=== PATIENT | female | born 1965 | race Caucasian/White ===

== ENCOUNTER 2020-06-14 12:53 | Outpatient (CLI) | payer OTHER, SELFPAY | END 2020-06-14 12:54 | disposition home or self-care (01) | LOC: ANHAUDIO 12:55 | PROVIDERS: PCP Internal Medicine; Visit Provider Otolaryngology | DX: H81.09 Meniere's disease, unspecified ear (principal) | CPT/HCPCS: 92557; 92567 ==

== ENCOUNTER → 2020-08-19 14:49 | Outpatient (CLI) | payer OTHER, SELFPAY ==
--- NOTE | ~2020-08-19 | MM_ITS ---
EXAMINATION: MM screening vanessa BI w jerome HISTORY: Screening TECHNIQUE: Craniocaudal and mediolateral oblique 3-D tomosynthesis images were obtained and synthetic 2-D images were generated. CAD analysis was submitted and interpreted. COMPARISON: Comparison to multiple prior studies sequentially, with oldest reviewed study dated 01/15. BREAST PARENCHYMAL COMPOSITION: There are scattered areas of fibroglandular density. FINDINGS: There is no evidence of suspicious mass, calcification, or architectural distortion to sugg est malignancy in either breast. There has been no suspicious interval change. IMPRESSION: 1. No mammographic evidence of malignancy. 2. Recommend routine screening mammography in one year. BI-RADS Category 1: Negative Reviewed, dictated and finalized at location A. DIE MOLDER
== END ==
PROVIDERS: Visit Provider Obstetrics & Gynecology Gynecology
DX: Z12.31 Encounter for screening mammogram for malignant neoplasm of breast (principal)
CPT/HCPCS: 77063; 77067

== ENCOUNTER 2021-10-06 15:30 | Outpatient (CLI) | payer OTHER, SELFPAY ==
--- NOTE | 2021-10-06 15:30 | ECG_ITS ---
Measurements Intervals [place] Rate: 68 P: 60 VA: 187 QRS: -11 QRSD: 76 T: 31 QT: 367 QTc: 391 Interpretive Statements SINUS RHYTHM NO PREVIOUS ECG AVAILABLE FOR COMPARISON Electronically Signed On 10-07-2021 6:44:58 CDT by Aleja Palmer M.D.
[2021-10-06 15:50] LABS: Anion Gap 5 mmol/L (8-16); Blood Urea Nitrogen 17 mg/dL (7-17); Calcium 9.2 mg/dL (8.4-10.2); Carbon Dioxide 32 mmol/L (22-30); Chloride 101 mmol/L (98-107); Estimated Glomerular Filt Rate 58; Glucose 95 mg/dL (65-110); Potassium 3.6 mmol/L (3.4-5.0); Sodium 138 mmol/L (137-145)
== END 2021-10-06 15:31 | disposition home or self-care (01) ==
LOC: ANHSURGERY 10-10 05:46
PROVIDERS: Anesthesiology; PCP Internal Medicine; Visit Provider Surgery Plastic and Reconstructive Surgery
DX: Z01.818 Encounter for other preprocedural examination (principal); E78.5 Hyperlipidemia, unspecified; Z51.81 Encounter for therapeutic drug level monitoring; Z79.899 Other long term (current) drug therapy
CPT/HCPCS: 36415; 80048; 93005

== ENCOUNTER 2021-10-10 00:10 | Day surgery (SDC) | payer OTHER, SELFPAY ==
[2021-10-02 16:02] VITALS: BMI 38.7
--- NOTE | 2021-10-02 16:25 | SUR.PREOP ---
Report to the Outpatient Waiting Room, entrance under the green pavilion located off [facility], at time _0600__ on date _. OR Time: _0730____. - You and your visitor will be asked a series of questions to screen for COVID 19 for your protection. - A mask is required within the hospital. Preoperative COVID Testing Requirements: No COVID Test needed if: (proof is required; if not received patient will have Rapid Test prior to entry) - Patient has received COVID Vaccine at least 14 days prior to procedure date or - Patient has positive COVID test result within last 90 days of surgery date. COVID Test needed if above criteria is not met If not COVID vaccinated a COVID test must be conducted within 72 hours of surgery and patient is asked to isolate self from time of testing until procedure. You will go to the [facility] for your COVID testing. The [facility] site is located at the corner of [address] [facility]. You will only be called if COVID results are positive and your surgeon may reschedule your elective surgery date. Patients may have clear liquids (water, carbonated beverages, clear teas, apple juice) until 3 hours prior to surgery with a maximum of 20 ounces. - No food from midnight until time of surgery - Infants may have breast milk until 4 hours before surgery, formula 6 hours prior to surgery. - Children will be allowed to drink immediately following surgery. If applicable, please bring a bottle or sippy cup to assist with drinking. Juice, water, soda, and popsicles are readily available. For infants on formula, please bring formula the day of surgery. Pacifiers are allowed. Take the following medications with a SIP of water the morning of surgery: _HOLD MORNING MEDS Medications to discontinue per physician ___CELEBREX ON 10/03/21 Date to take last dose_VITAMINS 3 DAYS PRIOR Please no make-up, nail ghanaian, hairspray, perfume, deodorant, or body powder the day of surgery. No jewelry (including any body piercings) or valuables the day of surgery, leave them at home. Please take a shower or bath the night before, or the morning of, surgery with an antibacterial soap. Wear comfortable, loose fitting clothing. Children are encouraged to wear pajamas. - Jewelry must be removed prior to entering the operating room. Rings and piercings that are not removed may be cut off. - The hospital will not accept responsibility for valuables. - Please leave all valuables, including medications, at home the day of surgery. If you are going home after surgery, a licensed catering driver must drive you home. - NO public transportation without another adult. - We recommend that an adult stay with you for 24 hours following discharge. - We also recommend that you do not drive, make important decision, drink alcoholic beverages, or take any drugs that were not prescribed by your health care provider for at least 24 hours after your discharge time. For Pediatric surgeries, we recommend two adults accompany the child home (only one inside the building at this time). One visitor will be allowed to accompany the patient into the hospital. Patients visitor will be instructed to remain with patient at all times or leave the building. We will allow the visitor to come back to the postoperative area when patient is ready. Follow any additional instructions given to you from your surgeon. Telephone instructions given to __PATIENT and asked if any additional questions and then verbalized understanding. Patient advised to call surgeon office or pre surgery nurse liaison [phone] if any additional questions.
[2021-10-10] VITALS (9 sets, daily range): BP systolic 117–148; BP diastolic 63–87; PULSE 61–84; RESP 12–20; TEMP 36.7; O2SAT 94–100
[2021-10-10 06:41] LABS: Urine Cotinine NEGATIVE
--- NOTE | 2021-10-10 06:42 | W.PM.PROC2 ---
Procedure Note - Detailed Date of Procedure 10/10/21 Pre-op Diagnosis macromastia Post-op Diagnosis Same Procedure Performed Bilateral reduction mammaplasty with free nipple graft Surgeon Bob Deleon MD Anesthesia General Findings Inverted T Free Nipple graft Tissue removed: Right - 2319 grams Left - 2323 grams Description of Procedure She is here today for bilateral breast reduction with free nipple graft. Previously and again today the risks, benefits, alternatives were discussed in extensive detail. I wanted her to be very realistic about the risks involved as well as expectations. We discussed aftercare and what to monitor for. She understands we can never guarantee final breast size and there will always be asymmetry. She understands she will have residual lateral fullness. She would like to be smaller than larger. I was very upfront and honest about the risks of sensation change and even nipple loss (). She understands that breast pathology is an additional cost and at her expense. Made sure answered all of her questions to her satisfaction today and consent was obtained. She was marked in the preoperative holding area with their verification. The patient was taken to the operating room placed supine on the operating table. Anesthesia was provided by anesthesiology. She was prepped and draped in a standard sterile fashion. A surgical time-out was taken. Stab incisions were made and I tumessed with a tumescent solution. I marked out the nipple-areolar complex at 42 mm. NAC was removed deep to dermis and kept in moist gauze. I then removed the inferior portion of the breast as well as the central keel to get shape based on preoperative planning. At this point copiously irrigated with saline solution and verified a strict hemostasis. I reapproximated the pillars using a 2-0 PDS. I tailor tacked the breast into place with gulshan. She was placed in a sitting position. I verified the nipple-areolar complex position based on preoperative markings, intraoperative measurements, and observation which were in full agreement. This nipple-areolar complex was marked at 42 mm in size. I then placed supine and de-epithelialized this. Nipple-areolar complex was defatted and inset with 5-0 chromic. I closed IMF deep with 1 strattafix. I closed the vertical incision with 3-0 Monocryl in the IMF with 3-0 stratafix. Then everything was closed using a running subcuticular 4-0 Monocryl followed by Steri-Strips. A bolster was placed over the NAC with xeroform, wet cotton, and 3-[address] to suture in place. A dressing was placed followed by surgical bra. Patient was awoke and taken to PACU without difficulty. All instrument sponge counts were correct at the end of the case. Estimated Blood Loss 100 Drains No Packing No Pathology Yes (bilateral breast tissue) Complications No immediate complications Condition Stable Disposition PACU
[2021-10-10] MEDS: LACTATED RINGERS 1,000 ML 30 ML IV CONT ×2 (06:45→10:06)
--- NOTE | 2021-10-10 06:48 | WPDANESEPPF ---
Anes - Initial Pre Proc Eval Procedure: Operation Date: 10/10/21 07:30 Proposed Procedures p Bilateral Breast Reduction - Bob Deleon MD Date/Time: 10/10/21 06:48 Surgeon: Bob Deleon MD Pre Op Diagnosis: micromastia Patient Data Age: 55 Gender: F Height: 1.7 m Weight: 112.04 kg Allergies Allergy/AdvReac Type Severity Reaction Status Date / Time doxycycline Allergy Severe y Verified 09/26/21 09:12 Home Medications Medication Instructions Recorded Confirmed Type cholecalciferol (vitamin D3) 125 5,000 unit PO DAILY 08/17/19 10/02/21 History mcg (5,000 unit) capsule celecoxib 200 mg capsule 200 mg PO DAILY cap 03/24/21 10/02/21 History trazodone 50 mg tablet 50 mg PO DAILY tablet 03/24/21 10/02/21 History triamterene 37.5 1 cap PO DAILY #90 cap 06/06/21 10/02/21 Rx mg-hydrochlorothiazide 25 mg capsule docusate sodium 100 mg capsule 100 mg PO DAILY #14 cap 09/26/21 10/02/21 Rx hydrocodone 5 mg-acetaminophen 325 1 tablet PO Q6H PRN #30 tablet 09/26/21 10/02/21 Rx mg tablet atorvastatin 10 mg PO HS 10/02/21 10/02/21 History Laboratory Tests 10/10/21 06:23 Cotinine Negative Patient hx anesthesia problems: none Family hx anesthesia problems: none Results Review: All pre-operative results and documents have been reviewed as part of the pre-operative evaluation. [facility] Surgical History Surgical History H/O colonoscopy History of D&C Hx of ureter repair Family History Family History Mother Depression Father Family history of elevated blood lipids Grandparent Cerebrovascular accident Carcinoma of colon Family history of heart disease in male family member before age 55 Other Hypertension Social History Social History Smoking status: Never smoker Second hand tobacco smoke exposure: No Alcohol intake: current Alcohol use details: PT STATES THAT SHE DRINKS ALCOHOL SOCIALLY Substance use: never Substance use type: does not use Living arrangements: with family Anes - Evkitty Final PreProcedure Day of Procedure 10/10/21 06:48 Patient weight: obese Heart: regular rate and rhythm Lungs: clear to auscultation Airway: Mallampati scale class II Neurological: alert and oriented Last oral intake: >/= 8 hours ASA classification: II Emergent: no Anesthetic plan: proceed Anesthesia type and monitoring: general ETT and standard monitoring Results Review: All pre-operative results and documents have been reviewed as part of the pre-operative evaluation. Informed Consent: The patient's anesthetic plan and its attendant risks and benefits were discussed with the patient/family/POA. Questions were solicited and answers provided to the satisfaction of the patient/family/POA.
[2021-10-10] MEDS: TRANEXAMIC ACID 1,000MG/ISO100 1,000 MG/100 ML BAG 200 MG IVPB (06:56)
--- NOTE | 2021-10-10 07:05 | WPDHPUPDATE1 ---
History and Physical Update Update Date/Time: 10/10/21 07:05 History and Physical has been reviewed, including an updated exam of the patient. There are NO changes in the patient's condition. Risks, benefits, and alternatives have been discussed and questions answered. Patient agrees to proceed with procedure.
[2021-10-10] MEDS: ceFAZolin 2 GM/D5W 50 ML 2 GM/50 ML BAG IVPB (07:27)
[2021-10-10] MEDS: LACTATED RINGERS IRRIG 1,000 ML, LIDOCAINE HCL 1% LOCAL INJ 50 ML, EPINEPHrine HCL INJ ... INFILTRATE (08:10)
[2021-10-10] MEDS: fentaNYL CITRATE INJ (*CRX) 100 MCG/2 ML VIAL 25 MCG IV PUSH ×2 (10:32→10:34)
== END 2021-10-10 12:30 | disposition home or self-care (01) ==
PROVIDERS: PCP Internal Medicine; Visit Provider Surgery Plastic and Reconstructive Surgery
PROC: 0HBV0ZZ Excision of Bilateral Breast, Open Approach (ICD-10-PCS; CPT 19318; principal; 2021-10-10 07:30)
DX: N62 Hypertrophy of breast (principal); N60.32 Fibrosclerosis of left breast; N60.31 Fibrosclerosis of right breast; N60.42 Mammary duct ectasia of left breast; N60.41 Mammary duct ectasia of right breast; N60.82 Other benign mammary dysplasias of left breast; N60.81 Other benign mammary dysplasias of right breast; Z79.899 Other long term (current) drug therapy; E66.9 Obesity, unspecified; Z68.39 Body mass index [BMI] 39.0-39.9, adult
CPT/HCPCS: 19318; 80307; 88305; J0171; J0690; J1100; J2250; J2405; J2704; J3010; J7120

== ENCOUNTER 2022-06-27 10:42 | Day surgery (SDC) | payer OTHER, SELFPAY ==
[2022-01-30 09:40] VITALS: BMI 37.1
[2022-06-14 09:37] VITALS: BMI 38.0
--- NOTE | 2022-06-26 10:19 | P.PNAN_ITS ---
Anes - Initial Pre Proc Eval Procedure: Operation Date: 06/27/22 12:00 Proposed Procedures p Screening Colonoscopy - Quan Reynolds MD Date/Time: 06/26/22 10:19 Surgeon: Quan Reynolds MD Pre Op Diagnosis: History of Colon Polyps Patient Data Age: 56 Gender: F Height: 1.7 m Weight: 110 kg Allergies Allergy/AdvReac Type Severity Reaction Status Date / Time doxycycline Allergy Severe y Verified 06/27/22 10:47 Home Medications Medication Instructions Recorded Confirmed Type cholecalciferol (vitamin D3) 125 5,000 unit PO DAILY 08/17/19 06/14/22 History mcg (5,000 unit) capsule celecoxib 200 mg capsule 200 mg PO DAILY 03/24/21 06/14/22 History trazodone 50 mg tablet 50 mg PO DAILY 03/24/21 06/14/22 History triamterene 37.5 1 cap PO DAILY #90 caps 06/06/21 06/14/22 Rx mg-hydrochlorothiazide 25 mg capsule atorvastatin 10 mg tablet 10 mg PO HS #90 tabs 01/17/22 06/14/22 Rx Patient hx anesthesia problems: none Family hx anesthesia problems: none Results Review: All pre-operative results and documents have been reviewed as part of the pre- operative evaluation. PMFSH Past Medical History Medical History Hyperlipidemia Surgical History Surgical History H/O colonoscopy History of D&C Hx of ureter repair Family History Family History Mother Depression Father Family history of elevated blood lipids Grandparent Cerebrovascular accident Carcinoma of colon Family history of heart disease in male family member before age 55 Other Hypertension Social History Social History Smoking status: Never smoker Second hand tobacco smoke exposure: No Alcohol intake: current Alcohol use details: socially Substance use: never Substance use type: does not use Living arrangements: with family Spiritual care concerns: No Anes - Eval Final PreProcedure Day of Procedure 06/26/22 10:19 Patient weight: obese Heart: regular rate and rhythm Lungs: clear to auscultation Airway: Mallampati scale class II Neurological: alert and oriented Last oral intake: >/= 8 hours ASA classification: II Emergent: no Anesthetic plan: proceed Anesthesia type and monitoring: general GIVS and standard monitoring Results Review: All pre-operative results and documents have been reviewed as part of the pre- operative evaluation. Informed Consent: The patient's anesthetic plan and its attendant risks and benefits were discussed with the patient/family/POA. Questions were solicited and answers provided to the satisfaction of the patient/family/POA.
--- NOTE | 2022-06-27 10:35 | PM.HPGS ---
History of Present Illness History of Present Illness Consent: Risks, benefits, and alternatives have been discussed and questions answered. Patient agrees to proceed with procedure. Chief complaint: History of Colon Polyps Narrative: Flori Tanner is a 56 year old female referred for colon cancer screening. About 3 years ago she had several adenomatous polyps removed. Review of Systems Review of Systems: All systems reviewed & are unremarkable except as noted in HPI and below PMFSH Past Medical History Medical History Hyperlipidemia Surgical History Surgical History H/O colonoscopy History of D&C Hx of ureter repair Family History Family History Mother Depression Father Family history of elevated blood lipids Grandparent Cerebrovascular accident Carcinoma of colon Family history of heart disease in male family member before age 55 Other Hypertension Social History Social History Smoking status: Never smoker Second hand tobacco smoke exposure: No Alcohol intake: current Alcohol use details: socially Substance use: never Substance use type: does not use Living arrangements: with family Spiritual care concerns: No Meds Home Medications and Allergies Home Medications Medication Instructions Recorded Confirmed Type cholecalciferol (vitamin D3) 125 5,000 unit PO DAILY 08/17/19 06/14/22 History mcg (5,000 unit) capsule celecoxib 200 mg capsule 200 mg PO DAILY 03/24/21 06/14/22 History trazodone 50 mg tablet 50 mg PO DAILY 03/24/21 06/14/22 History triamterene 37.5 1 cap PO DAILY #90 caps 06/06/21 06/14/22 Rx mg-hydrochlorothiazide 25 mg capsule atorvastatin 10 mg tablet 10 mg PO HS #90 tabs 01/17/22 06/14/22 Rx Allergies Allergy/AdvReac Type Severity Reaction Status Date / Time doxycycline Allergy Severe y Verified 06/27/22 10:47 Exam Const: General: alert Orientation/consciousness: patient oriented x3 Resp: Auscultation: clear to auscultation bilaterally Cardio: Rate: regular rate Rhythm: regular rhythm GI: GI Palp: Yes Soft to palpation and No Tenderness to palpation present (GI) Neuro: General: patient oriented x3 Assessment and Plan Assessment and plan (1) Colon cancer screening: Code(s): Z12.11 - Encounter for screening for malignant neoplasm of colon Status: Acute Assessment and Plan: Colonoscopy with possible biopsy or polypectomy or cautery or injection of substances.
[2022-06-27 10:55] VITALS: BMI 38.8
[2022-06-27 11:00] VITALS: BP 146/82; PULSE 72; RESP 16; TEMP 36.8; O2SAT 98
[2022-06-27] MEDS: LACTATED RINGERS 1,000 ML 150 ML IV CONT (11:14)
[2022-06-27 12:16] VITALS: BP 114/66; PULSE 66; RESP 16; O2SAT 97
[2022-06-27 12:26] VITALS: BP 123/73; PULSE 60; RESP 16; O2SAT 99
[2022-06-27 12:36] VITALS: BP 128/92; PULSE 60; RESP 16; O2SAT 100
--- NOTE | 2022-06-27 14:29 | WPDANESPN ---
Anes - Prog Note Post-Op Date/Time: 06/27/22 14:29 Cardiovascular status: normal Respiratory status: normal Airway patency: baseline Mental status: baseline Post-Op hydration status: normal Vital Signs: Last Vital Signs Temp 36.8 C 06/27/22 11:00 Pulse 60 06/27/22 12:36 Resp 16 06/27/22 12:36 BP 128/92 H 06/27/22 12:36 Pulse Ox 100 06/27/22 12:36 O2 Del Method Room Air 06/27/22 12:36 Pain Score (VAS): 0 I/O: Intake & Output 06/26/22 06/27/22 06/27/22 23:59 07:59 15:59 Intake Total 400 Balance 400 Post-procedural complaints: none Patient Feedback: Patient satisfied with anesthetic care. Other Findings: Patient vital signs back to baseline. Patient denies nausea and vomiting. Patient's pain under control. Patient OK for discharge.
== END 2022-06-27 13:00 | disposition home or self-care (01) ==
PROVIDERS: PCP Internal Medicine; Visit Provider Internal Medicine Gastroenterology
PROC: 0DJD8ZZ Inspection of Lower Intestinal Tract, Via Natural or Artificial Opening Endoscopic (ICD-10-PCS; CPT 45378; principal; 2022-06-27 12:00)
DX: Z12.11 Encounter for screening for malignant neoplasm of colon (principal)
CPT/HCPCS: 45378

== ENCOUNTER 2022-09-03 08:20 | Outpatient (CLI) | payer OTHER, SELFPAY ==
[2022-09-03 19:34] LABS: Basophils Absolute Auto 0.1 K/mm3 (0.0-0.1); Eosinophils Absolute Auto 0.2 K/mm3 (0-0.3); Eosinophils Percent Auto 3.3 % (0-4.4); Hematocrit 45.2 % (37.0-47.0); Hemoglobin 14.5 g/dL (12.0-15.0); Immature Granulocyte Absolute 0.02 K/mm3 (0.00-0.031); Immature Granulocyte Percent A 0.3 % (0-0.5); Lymphocytes Absolute Auto 2.12 K/mm3 (0.9-3.2); Lymphocytes Percent Auto 35.4 % (18.3-44.2); Mean Corpuscular HGB Conc 32.1 g/dl (32-36); Mean Corpuscular Hemoglobin 27.7 pg (26-34); Mean Corpuscular Volume 86.3 fl (80-100); Mean Platelet Volume 9.8 fl (7.4-10.4); Monocytes Absolute Auto 0.6 K/mm3 (0.1-0.6); Platelet Count Result 352 k/mm3 (150-375); Red Blood Count 5.24 M/mm3 (4.2-5.4); Red Cell Distribution Width 13.2 % (11.5-14.5)
[2022-09-03 20:43] LABS: Alanine Aminotransferase 22 U/L (6-35); Albumin Level 4.4 g/dL (3.5-5.1); Alkaline Phosphatase 84 U/L (38-126); Anion Gap 9 mmol/L (8-16); Aspartate Amino Transferase 53 U/L (14-36); Bilirubin,Total 0.7 mg/dL (0.2-1.3); Blood Urea Nitrogen 15 mg/dL (7-17); Calcium 9.2 mg/dL (8.4-10.2); Carbon Dioxide 29 mmol/L (22-30); Chloride 98 mmol/L (98-107); Cholesterol 155 mg/dL (0-200); Estimated Glomerular Filt Rate > 60; Glucose 65 mg/dL (65-110); HDL Direct 42 mg/dL; Sodium 136 mmol/L (137-145); Triglycerides 137 mg/dL (<150)
[2022-09-03 20:54] LABS: LDL Cholesterol Direct 70 mg/dL
[2022-09-03 21:19] LABS: Hemoglobin A1C 5.4 % (<5.7)
== END 2022-09-03 08:21 | disposition home or self-care (01) ==
LOC: ANHGOSHLAB 08:22
PROVIDERS: PCP Internal Medicine; Visit Provider Internal Medicine
DX: E78.5 Hyperlipidemia, unspecified (principal); H81.09 Meniere's disease, unspecified ear; Z13.228 Encounter for screening for other metabolic disorders
CPT/HCPCS: 36415; 80053; 80061; 83036; 85025

== ENCOUNTER → 2022-10-17 16:00 | Outpatient (CLI) | payer OTHER, SELFPAY ==
--- NOTE | ~2022-10-17 | CT_ITS ---
EXAMINATION: CT sinus wo con DATE: 10/17/2022 16:21 INDICATION: Chronic sinusitis TECHNIQUE: Computed tomography (CT) of the paranasal sinuses was performed without intravenous contra st. The dose-length product was 410.46 mGy-cm. Automated exposure control and iterative reconstructio n technique were employed. COMPARISON: None FINDINGS: There is mild mucosal thickening of the right maxillary sinus. There is moderate mucosal th ickening of the right sphenoid sinus air no air-fluid levels. Leftward nasal septal deviation. Ostiom eatal units are patent. There is hypertrophy of the right inferior turbinate. Mastoids are pneumatize d. IMPRESSION: 1. Sinusitis, most severe in the right sphenoid sinus. Reviewed, dictated and finalized at location A.
== END ==
PROVIDERS: PCP Internal Medicine; Visit Provider Clinical Nurse Specialist
DX: J32.3 Chronic sphenoidal sinusitis (principal)
CPT/HCPCS: 70486

== ENCOUNTER 2022-11-27 08:12 | Outpatient (CLI) | payer OTHER, SELFPAY ==
--- NOTE | 2022-12-13 14:45 | WPDHOMESLEEP ---
Sleep Study - Home Unattended Date of Study: 11/27/22 Ordering Provider: MARYELLEN Paez-C Interpreting Provider: lEda Pelaez MD Home Sleep Study Type: Watch PAT Height: 1.7 m Weight: 120.202 kg Body Mass Index: 41.5 Neck Circumference (inches): 15.5 [place]: 7 Reason for Sleep Study Loud snoring, witnessed apneas A/P: GORDO: The patient had an overall AHI of 9.3 with desaturation down to 85%. This is consistent with sleep apnea. Due to the patient's anxiety, she qualifies for PAP therapy. I recommend that the patient be prescribed Resmed AirSense 11 AutoPAP 5-15 cm H2O, CPAP mask/filters/tubing and humidifier chamber. This should be used with all episodes of sleep. Compliance should be reviewed within 31-90 days of starting therapy for usage greater than 4 hours per night greater than 70% of the nights. The patient should be asked about symptoms such as excessive daytime sleepiness, quality of sleep, decreased nocturia, increased mental functioning such as memory, mood, and concentration. Loud snoring, witnessed apneas Sleep History: The patient is a 56 old female with hyperlipidemia, lumbar disc disease and Meniere?s disease that had a sleep study ordered for evaluation of sleep. She occasionally awakens from sleep short of breath. She denies awakening at night with heartburn, belching or cough. She frequently snores and is frequently loud enough others complain. She constantly has trouble sleeping when she has a cold. She occasionally wakes up gasping for air throughout the. She occasionally has breathing problems at night observed by herself or others. She rarely sweats excessively at night. She occasionally has heart palpitations or irregular heartbeats during the night. She denies falling asleep during the day and while driving. She denies cataplexy. She rarely has trouble at school or work due to sleepiness. She rarely feels unable to move while waking up or falling asleep. She denies hypnagogic/hypnopompic hallucinations. She denies feeling afraid of going to sleep. She occasionally has nightmares and occasionally remembers her dreams. She occasionally has thoughts racing through her mind. She frequently feels sad, depressed and anxious. She occasionally has muscular tension. She rarely notices parts of her body jerk. She rarely kicks during the night. She denies having crawling and aching feelings in her legs and denies having leg pain during the night. She denies grinding her teeth during sleep but occasionally awakens with morning jaw pain. She is occasionally bothered by pain during the day and occasionally awakened by pain during the night. She occasionally wakes up feeling stiff morning. She denies waking up with sore or achy muscles. She rarely wakes up with pain in the neck, spine or other joints. She goes to bed at 10:00 p.m. on weekdays and 11:00 p.m. on the weekends. It takes her less than 5 minutes to fall asleep. She wakes up 1-2 times throughout the night for unknown reasons but is able to fall back asleep within 5 minutes. She wakes up at 8:00 a.m. on both weekdays and weekends. She typically gets 7-9 hours of sleep per night. She will stay in bed for less than 10 minutes after waking up in the morning. She currently lives with her and 2 adult children. She denies consuming any caffeinated beverages within 2 hours of bedtime. She denies engaging in physical exercise before bedtime. She will watch television before falling asleep. She will occasionally take naps in the afternoon or the evening and they are refreshing. She consumes 1-2 caffeinated beverages throughout the day. She denies tobacco, alcohol and recreational drug use. Architecture: The patient had a total recording time of 8 hours 53 minutes and total sleep time of 8 hours 23 minutes. The sleep efficiency was 94.38%. Sleep latency was 17 minutes and REM latency was 47 minutes. The patient had 4 awakenings. T
[2022-12-13 14:50] VITALS: BMI 41.5
== END 2022-11-28 14:35 | disposition home or self-care (01) ==
LOC: ANHCSM 08:13
PROVIDERS: PCP Internal Medicine; Visit Provider Clinical Nurse Specialist
DX: G47.10 Hypersomnia, unspecified (principal); G47.33 Obstructive sleep apnea (adult) (pediatric)
CPT/HCPCS: 95800

== ENCOUNTER → 2023-01-04 13:10 | Outpatient (CLI) | payer OTHER, SELFPAY ==
--- NOTE | ~2023-01-04 | DEXA_ITS ---
Bone Density Report Name: AJ GILMORE Age: 57 Sex: Female Ethnicity: White Date of : 1965 Indication: postmenopausal; screening for osteoporosis; prior fracture; Referring Provider: ANTIONE DÍAZ Study: Bone densitometry was performed. Exam Date: January 04, 2023 Accession number: [id number] Bone Density: Region BMD T-score Z-score Classification AP Spine (L1, L3, L4) 1.133 0.7 1.8 Normal Femoral Neck (Left) 0.820 -0.3 0.8 Normal Total Hip (Left) 0.991 0.4 1.1 Normal Femoral Neck (Right) 0.829 -0.2 0.9 Normal Total Hip (Right) 0.984 0.3 1.0 Normal Total Hip Mean 0.988 0.4 1.1 Normal World Health Organization criteria for BMD impression classify patients as: Normal (T-score at or above -1.0), Osteopenia (T-score between -1.0 and -2.5), or Osteoporosis (T-score at or below -2.5). 10-year Fracture Risk: FRAX not reported because: All T-scores for Spine Total, Hip Total, Femoral Neck at or above -1.0 Clinical Information Provided by Patient: Has had a low trauma fracture Has used the following medications: HRT (i.e. estrogen/hormone therapy), Vitamin D Patient maximum height was 67.7 Menopause Age: 55 Drinks caffeinated beverages Onset of menses at age 17 Number of children 2 Missed period for more than 6 months in a row Impression: The patient has normal bone mass. The patient has risk factors, including: previous fracture. Discussion: BONE DENSITY IS ABOVE THE MINIMUM DESIRABLE LEVEL AT ALL SKELETAL SITES TESTED. This patient?s bone mineral density is above the minimum desirable level (T-score -1.0 or better) at all sites measured. The patient should follow a healthful lifestyle (good nutrition with adequate calcium and vitamin D, and appropriate weight-bearing exercise). Follow-Up: Consider repeating this study in 5 years or sooner if there is some new clinical indication. Reported by: [facility] on 01/04/2023 1:24:00 PM. Reviewed, dictated and finalized at location [facility]
== END ==
PROVIDERS: PCP Internal Medicine; Visit Provider Obstetrics & Gynecology Gynecology
DX: Z13.820 Encounter for screening for osteoporosis (principal); Z78.0 Asymptomatic menopausal state
CPT/HCPCS: 77080

== ENCOUNTER 2023-01-16 11:34 | Outpatient (CLI) | payer OTHER, SELFPAY ==
[2023-01-16 17:54] LABS: Vitamin D 25 Hydroxy 54.5 ng/mL
== END 2023-01-16 11:35 | disposition home or self-care (01) ==
LOC: ANHGOSHLAB 11:36
PROVIDERS: PCP Internal Medicine; Visit Provider Obstetrics & Gynecology Gynecology
DX: E55.9 Vitamin D deficiency, unspecified (principal)
CPT/HCPCS: 36415; 82306

== ENCOUNTER 2023-12-26 10:14 | Outpatient (CLI) | payer OTHER, SELFPAY ==
[2023-12-26 18:51] LABS: Basophils Absolute Auto 0.1 K/mm3 (0.0-0.1); Basophils Percent Auto 0.8 % (0.2-1.2); Eosinophils Absolute Auto 0.2 K/mm3 (0-0.3); Eosinophils Percent Auto 2.3 % (0-4.4); Hematocrit 45.4 % (37.0-47.0); Hemoglobin 14.3 g/dL (12.0-15.0); Immature Granulocyte Absolute 0.02 K/mm3 (0.00-0.031); Immature Granulocyte Percent A 0.3 % (0-0.5); Lymphocytes Absolute Auto 2.15 K/mm3 (0.9-3.2); Lymphocytes Percent Auto 33.5 % (18.3-44.2); Mean Corpuscular HGB Conc 31.5 g/dl (32-36); Mean Corpuscular Hemoglobin 27.7 pg (26-34); Mean Corpuscular Volume 87.8 fl (80-100); Monocytes Absolute Auto 0.5 K/mm3 (0.1-0.6); Neutrophils Absolute Auto 3.6 K/mm3 (1.3-6.7); Neutrophils Percent Auto 56.1 % (45.5-73.1); Platelet Count Result 338 k/mm3 (150-375); Red Blood Count 5.17 M/mm3 (4.2-5.4); Red Cell Distribution Width 13.2 % (11.5-14.5); White Blood Count 6.4 K/mm3 (4.5-10.0)
[2023-12-26 19:03] LABS: Alanine Aminotransferase 17 U/L (6-35); Albumin Level 4.3 g/dL (3.5-5.1); Alkaline Phosphatase 81 U/L (38-126); Anion Gap 4 mmol/L (4-12); Aspartate Amino Transferase 33 U/L (14-36); Bilirubin,Total 0.8 mg/dL (0.2-1.3); Blood Urea Nitrogen 14 mg/dL (7-17); Carbon Dioxide 30 mmol/L (22-30); Chloride 105 mmol/L (98-107); Cholesterol 176 mg/dL (0-200); Estimated Glomerular Filt Rate > 60; Glucose 86 mg/dL (65-110); HDL Direct 47 mg/dL; Potassium 4.1 mmol/L (3.4-5.0); Sodium 139 mmol/L (137-145); Triglycerides 175 mg/dL (<150)
[2023-12-26 19:16] LABS: LDL Cholesterol Direct 102 mg/dL
[2023-12-26 19:50] LABS: Vitamin D 25 Hydroxy 48.7 ng/mL
[2023-12-26 22:40] LABS: Hemoglobin A1C 5.6 % (<5.7)
== END 2023-12-26 10:15 | disposition home or self-care (01) ==
LOC: ANHGOSHLAB 10:16
PROVIDERS: PCP Internal Medicine; Visit Provider Clinical Nurse Specialist
DX: E55.9 Vitamin D deficiency, unspecified (principal); E78.5 Hyperlipidemia, unspecified; F41.9 Anxiety disorder, unspecified; R73.9 Hyperglycemia, unspecified; Z13.220 Encounter for screening for lipoid disorders; Z13.29 Encounter for screening for other suspected endocrine disorder
CPT/HCPCS: 36415; 80053; 80061; 82306; 82607; 83036; 84443; 85025

== ENCOUNTER 2024-01-15 07:00 | Outpatient (NON) | payer OTHER, SELFPAY | END 2024-01-15 07:01 | disposition home or self-care (01) | LOC: ANHLAB 01-16 06:58 | PROVIDERS: PCP Internal Medicine; Visit Provider Surgery Plastic and Reconstructive Surgery | DX: D48.5 Neoplasm of uncertain behavior of skin (principal) | CPT/HCPCS: 88305 ==

== ENCOUNTER 2025-02-05 08:52 | Outpatient (CLI) | payer OTHER, SELFPAY ==
--- OUTSIDE RECORDS SUMMARY | 2025-02-05 08:58 | XMS_ITS | Clinical Summary ---
Author Organization [facility] Address [address] [place] [phone] Care Team Providers Care Glass Maker Name Role Phone Norm Spears DO Primary Care Provider [phone] Allergies Active Allergy Reactions Criticality Noted Date Comments Amoxicillin Rash Medium 09/25/2024 Doxycycline Rash Medium 09/25/2024 Medications traZODone (DESYREL) 50 mg tablet Take 1 tablet (50 mg total) by mouth nightly 07/21/2024 Active sertraline (ZOLOFT) 100 mg tablet Take 1 tablet (100 mg total) by mouth daily 09/16/2024 Active celecoxib (CeleBREX) 200 mg capsule Take 1 capsule (200 mg total) by mouth daily 09/05/2024 Active ergocalciferol (VITAMIN D) 50,000 unit capsule Take 1 capsule (50,000 Units total) by mouth once a week Active atorvastatin (LIPITOR) 10 mg tablet Take 1 tablet (10 mg total) by mouth daily 07/21/2024 Active Active Problems No known active problems Social History Tobacco Use Types Packs/Day Years Used Date Smoking Tobacco: Never Passive Smoke Exposure: Never Smokeless Tobacco: Never Tobacco Cessation:Counseling Given: Not Answered Comments Unknown Sex and Gender Information Value Date Recorded Sex Assigned at Not on file Legal Sex Female 2:03 PM CDT Gender Identity Not on file Sexual Orientation Not on file Obstetrics History Plan of Treatment Health Maintenance Due Date Last Done Comments Cervical Cancer Screening 1967 Colon Cancer Screening-Colonoscopy 1967 Depression Screening 1967 Hepatitis C Screening 1967 DTaP/Tdap/Td Vaccine (1 - Tdap) 12/26/1978 Hepatitis B Screening 12/26/1985 Regular Well Visit/Exam 18-64 12/26/1985 Zoster Vaccine (1 of 2) 12/26/2017 Covid-19 Vaccine ( season) 2024 04/26/2022, 06/08/2021, 09/17/2020, Additional history exists Breast Cancer Screening-Mammogram 12/09/2024 12/10/2023, 12/10/2023 Influenza Vaccine (#1) 2025 04/24/2024, 2020 Pneumococcal vaccine <65 Aged Out No longer eligible based on patient's age to complete this topic Insurance CHOICE PLUS Member Subscriber Plan / Payer (Ef fective 2024-Present) Name:Ciro Flori Relation to Subscriber:Self Name:Renee Tannerhleen Payer ID:[id number] (NAIC) Type:[facility] HMO/PPO Address: [place] [id number] CHOICE PLUS [place] [id number] Care Teams Glass Maker Relationship Specialty Start Date End Date Norm Spears DO [facility] [place] [address] PCP - General Internal Medicine 09/25/24
--- OUTSIDE RECORDS SUMMARY | 2025-02-05 08:58 | XMS_ITS | Clinical Summary ---
Author Organization [facility] Address [address] [place] [address] Care Team Providers Care Box Repairer Name Role Phone Grayson Mora Primary Care Provider [phone] Source Comments [facility],non-owned Affiliates and Associated Physician Practices is amultiple site organization consisting of ambulatory clinics and hospital sitesin [place], [place], [place] and [place]. This disclosure is being madepursuant to the Care Everywhere program and may not contain all information available regarding this patient. Last updated 18.[facility] Allergies No known active allergies Medications * Be aware that medications may not be up to date on this document. Alwaysverify current medications with the patient. meth-hyo-m bl-na phos-ph deanna (URELLE) 81 MG tablet Take 1 Tab by mouth as needed. Active estradiol-noreth indrone (ACTIVELLA) 0.5-0.1 MG tablet Take 1 Tab by mouth once daily. Active hydrALAZINE (APRESOLINE) 10 MG tablet Take 10 mg by mouth as needed. Active pentosan polysulfate sodium (ELMIRON) 100 MG capsule Take 100 mg by mouth 3 times daily before meals. Active vitamin D2 (ERGOCALCIFEROL) 54047 UNIT capsule Take 1 Cap by mouth every 7 days. Active fish oil/omega-3 fatty acids (FISH OIL) 1000 MG capsule Take 1,000 mg by mouth daily with food. Active cefUROXime (CEFTIN) 250 MG tablet Take 1 Tab by mouth every 12 hours. 60 Tab 2 02/27/2011 Active Active Problems No known active problems Family History Medical History Relation Name Comments Cancer - Colon Maternal Grandfather Endometriosis Mother Relation Name Status Comments Maternal Grandfather Mother Social History Tobacco Use Types Packs/Day Years Used Date Smoking Tobacco: Never Alcohol Use Standard Drinks/Week Comments Yes 0 (1 standard drink = 0.6 oz pur e alcohol) OCCASIONAL Comments No Sex and Gender Information Value Date Recorded Sex Assigned at Not on file Legal Sex Female 11:58 AM HEALTH AND NUTRITION SPECIALIST Gender Identity Not on file Sexual Orientation Not on file Last Filed Vital Signs Vital Sign Reading Time Taken Comments Blood Pressure 115/68 02/27/2011 1:12 PM CDT Pulse 60 02/27/2011 1:12 PM CDT Temperature 36.7 C (98 F) 02/27/2011 12:17 PM CDT Respiratory Rate 18 02/27/2011 1:12 PM CDT Oxygen Saturation 100% 02/27/2011 1:12 PM CDT Inhaled Oxygen Concentration - - Weight 107.5 kg (237 lb) 02/27/2011 10:17 AM CDT Height 170.2 cm (5' 7) 02/27/2011 10:17 AM CDT Body Mass Index 37.12 02/27/2011 10:17 AM CDT Plan of Treatment Health Maintenance Due Date Last Done Comments COLOGUARD (AGES 45-75) - COL ON CA SCREENING 1967 COLON MONITORING 1967 COLONOSCOPY - COLON CA SCREENING 1967 CT COLONOGRAPHY - COLON CA SCREENING 1967 Colorectal Cancer Screening 1967 FIT - COLON CA SCREENING 1967 FLEX SIG - COLON CA SCREENING 1967 LIPID TESTING 1967 MAMMOGRAM 1967 HIV SCREENING 12/26/1982 HEPATITIS C SCREENING 12/22/1985 DTAP/TDAP/TD VACCINES (1 - Tdap) 12/26/1986 HEPATITIS B VACCINE (1 of 3 - 19+ 3-dose series) 12/26/1986 PAP SMEAR 12/26/1988 PNEUMOCOCCAL VACCINE 50+ (1 of 1 - PCV) 12/26/2017 ZOSTER VACCINE (1 of 2) 12/26/2017 COVID-19 VACCINE ( - 2023-2 5 season) 2024 DEPRESSION SCREENING 07/01/2024 INFLUENZA VACCINE (#1) 2025 HIB VACCINE Aged Out No longer eligi ble based on patient's age to complete this topic HPV VACCINE Aged Out No longer eligi ble based on patient's age to complete this topic MENINGOCOCCAL (Group B) VACC INE SHARED DECISION-MAKING Aged Out No longer eligibl e based on patient's age to complete this topic MENINGOCOCCAL GROUPS A/C/Y/W VACCINE Aged Out No longer eligible b ased on patient's age to complete this topic Insurance * Guarantor: AJ GILMORE Account Type Relation to Patient Date of Phone Billing Address Personal/Family [address] [place] [phone] SELF PAY NO INSURANCE Member Subscriber Plan / Payer (Ef fective for All Dates) Name:Aj Gilmore Member ID:Not on file Relation to Subscriber:Not on file Name:AJ GILMORE Subscriber ID:Not on file (Home) Address: [address] [place] [phone] Payer ID:Not on file Group ID:Not on file Type:Self Pay Address: [facility] * Guarantor: AJ GILMORE Account Type Relation to Patient Date of Phone Billing Address Personal/Family [address] [place] [phone] SELF PAY NO INSURANCE Member Subscriber Plan / Payer (Ef fective for All Dates) Name:Aj Gilmore Member ID:Not on file Relation to Subscriber:Not on file Name:AJ GILMORE Subscriber ID:Not on file (Home) Address: [address] [place] [phone] Payer ID:Not on file Group ID:Not on file Type:Self Pay Address: [facility] * Guarantor: AJ GILMORE Account Type Relation to Patient Date of Phone Billing Address Personal/Family [address] [place] [phone] SELF PAY NO INSURANCE Member Subscriber Plan / Payer (Ef fective for All Dates) Name:Aj Gilmore Member ID:Not on file Relation to Subscriber:Not on file Name:AJ GILMORE Subscriber ID:Not on file (Home) Address: [address] [place] [phone] Payer ID:Not on file Group ID:Not on file Type:Self Pay Address: [facility] Care Teams Box Repairer Relationship Specialty Start Date End Date Grayson Mora DO [address] [place] [address] PCP - General 10/11/21
--- OUTSIDE RECORDS SUMMARY | 2025-02-05 08:58 | XMS_ITS | Clinical Summary ---
Author Organization [facility] Address [address] [place] [address] Care Team Providers Care Leaf Tinner Name Role Phone Unavailable Primary Care Provider Unavailabl e Encounters Date Type Department Care Team Description 11/24/2024 External Device Data [facility] ABSTRACTION Provider, Abstract 11/18/2024 External Device Data [facility] ABSTRACTION Provider, Abstract 11/17/2024 External Device Data [facility] ABSTRACTION Provider, Abstract from Last 3 Months Social History Tobacco Use Types Packs/Day Years Used Date Smoking Tobacco: Never Assessed Comments Unknown Sex and Gender Information Value Date Recorded Sex Assigned at Not on file Legal Sex Female 6:09 PM LINING MAKER HAND Gender Identity Not on file Sexual Orientation Not on file Plan of Treatment Health Maintenance Due Date Last Done Comments DTAP/TDAP/TD VACCINES (1 - Tdap) 12/26/1986 HEPATITIS B VACCINES (1 of 3 - 19+ 3-dose series) 12/26/1986 HPV/Cotest (21-29) 12/26/1988 CERVICAL CANCER SCREENING 12/26/1997 HPV/Cotest (30-65) 12/26/1997 PAP SMEAR 12/26/1997 COLORECTAL SCREENING 12/26/2012 Colorectal Cancer Screening 12/26/2012 FIT-DNA Q 3 years 12/26/2012 FIT/FOBT Q 1 year 12/26/2012 Flex Sig/CT Colonography Q 5 years 12/26/2012 ZOSTER VACCINE (1 of 2) 12/26/2017 BREAST CANCER SCREENING 12/09/2024 12/10/19 24, 09/04/2021, 09/04/2021 INFLUENZA VACCINE (#1) 2025 Procedures Procedure Name Priority Date/Time Associated Diagnosis Comments MAMMO 3D ERMA SCREEN BILAT W OR WO CAD Routine 12/10/2023 2:37 PM CDT Breast cancer screening by mammogram from Last 3 Months or Most Recently Relevant to Health Maintenance Results * MAMMO 3D ERMA SCREEN BILAT W OR WO CAD (12/10/2023 2:37 PM CDT) Anatomical Region Laterality Modality Breast Bilateral Mammography 12/10/2023 2:40 PM CDT Impressions 12/10/2023 2:55 PM CDT IMPRESSION: Interval breast reduction surgery. No mammographic evidence for malignancy. OVERALL FINAL ASSESSMENT: BI-RADS CATEGORY 1: Negative Recommendation: Screening mammogram in 1 year Narrative 12/10/2023 2:55 PM CDT BILATERAL SCREENING DIGITAL MAMMOGRAM WITH 3D TOMOSYNTHESIS AND CAD DATE: 12/10/2023 2:37 PM HISTORY: Annual screening study. COMPARISON: 2021 TECHNIQUE: A bilateral screening mammogram was performed. Low-dose full-field digital breast tomosynthesis examination was performed with 2D and 3D acquisitions. Examination is read in conjunction with computer aided detection. BREAST COMPOSITION: Scattered fibroglandular densities FINDINGS: There has been an interval breast reduction. No suspicious masses, suspicious microcalcifications or areas of architectural distortion are noted. us Liz Hamilton MD MAMMO ORDERABLES Final Re sult from Last 3 Months or Most Recently Relevant to Health Maintenance Insurance INDIVIDUAL EXCHANGE [id number]
[2025-02-05 13:06] LABS: Add Urine Microscopic? YES; Appearance Urine Clear (Clear); Glucose Urine UA Negative (Negative); Leukocyte Esterase Ur 2+ LEU/UL (Negative); Nitrate Urine Negative (Negative); Non Pathogenic Casts 0-2; Specific Grav Ur 1.012 (1.001-1.035)
[2025-02-05 13:08] LABS: Alanine Aminotransferase 19 U/L (6-35); Albumin Level 4.3 g/dL (3.5-5.1); Alkaline Phosphatase 87 U/L (38-126); Anion Gap 9 mmol/L (4-12); Aspartate Amino Transferase 34 U/L (14-36); Bilirubin,Total 0.9 mg/dL (0.2-1.3); Blood Urea Nitrogen 13 mg/dL (7-17); Calcium 9.4 mg/dL (8.4-10.2); Carbon Dioxide 26 mmol/L (22-30); Chloride 105 mmol/L (98-107); Cholesterol 208 mg/dL (0-200); Estimated Glomerular Filt Rate > 60; Glucose 100 mg/dL (65-110); HDL Direct 58 mg/dL; Hematocrit 46.4 % (37.0-47.0); Hemoglobin 14.5 g/dL (12.0-15.0); Immature Granulocyte Percent A 0.5 % (0-0.5); Lymphocytes Absolute Auto 1.97 K/mm3 (0.9-3.2); Mean Corpuscular HGB Conc 31.3 g/dl (32-36); Mean Corpuscular Hemoglobin 27.6 pg (26-34); Mean Corpuscular Volume 88.2 fl (80-100); Nucleated Red Blood Cells Absolute Auto 0.000 K/mm3 (0.0-0.012); Nucleated Red Blood Cells Perc 0.0 % (0.0-0.2); Platelet Count Result 358 k/mm3 (150-375); Potassium 4.0 mmol/L (3.4-5.0); Red Blood Count 5.26 M/mm3 (4.2-5.4); Sodium 140 mmol/L (137-145); Total Protein 7.5 g/dL (6.3-8.2); Triglycerides 133 mg/dL (<150); White Blood Count 6.6 K/mm3 (4.5-10.0)
[2025-02-05 13:44] LABS: Thyroid Stimulating Hormone 3.000 uIU/mL (0.465-4.680)
[2025-02-05 15:12] LABS: Free T3 3.95 pg/mL (2.71-6.16); Free T4 Free Thyroxine 1.00 ng/dL (0.78-2.19)
[2025-02-05 15:13] LABS: Hemoglobin A1C 5.8 % (<5.7)
== END 2025-02-05 08:53 | disposition home or self-care (01) ==
LOC: ANHGOSHLAB 08:54
PROVIDERS: Obstetrics & Gynecology Gynecology; PCP Internal Medicine; Visit Provider Clinical Nurse Specialist
DX: E55.9 Vitamin D deficiency, unspecified (principal); F41.9 Anxiety disorder, unspecified; E78.5 Hyperlipidemia, unspecified; Z13.29 Encounter for screening for other suspected endocrine disorder; H81.03 Meniere's disease, bilateral; R39.9 Unspecified symptoms and signs involving the genitourinary system; R74.01 Elevation of levels of liver transaminase levels; R73.01 Impaired fasting glucose
CPT/HCPCS: 36415; 80053; 80061; 81001; 82306; 83036; 84439; 84443; 84481; 85025